=== PATIENT | male | born 2000 | race Caucasian/White ===

== ENCOUNTER 2020-05-12 21:52 | Emergency (ER) | payer BC ==
[~2020-05-12] VITALS: Ht 170.2 cm; Wt 86.2 kg
[~2020-05-12 21:52] MED LIST: CLONAZEPAM 1 MG1 M1 PO; HYDROXYZINE HCL10 M1 PO; KEFLEX250 MG PO; REMERON30 MG PO; STRATTERA PO; VYVANSE60 MG PO; [UNRECOGNIZED DRUG - REMARK]
[2020-05-12 22:36] LABS: URINE BILIRUBIN NEGATIVE (Negative); URINE BLOOD NEGATIVE (Negative); URINE CLARITY CLEAR; URINE COLOR YELLOW; URINE GLUCOSE-RANDOM NEGATIVE (Negative); URINE KETONES NEGATIVE (Negative); URINE LEUKOCYTES-REFLEX NEGATIVE (Negative); URINE NITRITE-REFLEX NEGATIVE (Negative); URINE PROTEIN NEGATIVE (Negative); URINE SPECIFIC GRAVITY >= 1.030 (1.005-1.030); URINE UROBILINOGEN 0.2 E.U./dl (0.2-1.0)
[2020-05-12 22:58] LABS: ABSOLUTE BASOPHILS 0.1 thou/uL (0.0-0.2); ABSOLUTE EOSINOPHILS 0.5 thou/uL (0.0-0.7); ABSOLUTE LYMPHOCYTES 2.7 thou/uL (0.8-5.3); ABSOLUTE MONOCYTES 0.8 thou/uL (0.0-1.2); ABSOLUTE NEUTROPHILS 6.7 thou/uL (1.6-8.1); EOSINOPHILS 4.3 %; HEMATOCRIT 43.6 % (42.0-52.0); HEMOGLOBIN 15.2 gm/dL (14.0-18.0); LYMPHOCYTES 24.7 %; MCH 30.5 pg (26.0-34.0); MCV 87.3 fL (80.0-100.0); MONOCYTES 7.2 %; MPV 8.1 fl. (7.2-11.1); NUCLEATED RBCS 0 /100WBC; PLATELET COUNT* 256 thou/uL (150-400); POLYS 62.8 %; RDW-CV 12.4 % (10.5-14.5); WBC 10.7 thou/uL (4.0-11.0)
[2020-05-12 23:07] LABS: CALCIUM 8.6 mg/dL (8.5-10.1); POTASSIUM 3.5 mmol/L (3.5-5.1)
[2020-05-12 23:12] LABS: ALBUMIN 4.2 g/dL (3.4-5.0); MAGNESIUM 2.2 mg/dL (1.8-2.4); TOTAL BILIRUBIN 0.3 mg/dL (<0.1-1.0); TOTAL PROTEIN 7.7 g/dL (6.4-8.2)
[2020-05-12 23:15] LABS: AMP/METHAMP Negative (Negative); BARBITURATES Negative (Negative); BENZODIAZEPINES Negative (Negative); COCAINE Negative (Negative); METHADONE Negative (Negative); OPIATES Negative (Negative); PCP Negative (Negative); THC Negative (Negative)
[2020-05-13] MEDS ORDERED: ZOFRAN ODT4 MG PO (01:13)
[2020-05-13 01:28] VITALS: BP 124/71
== END 2020-05-13 01:29 | disposition home or self-care (01) ==
LOC: M.ERS 21:52
PROVIDERS: Personal Emergency Response Attendant
DX: K52.9 Noninfective gastroenteritis and colitis, unspecified (principal); R11.2 Nausea with vomiting, unspecified; J45.909 Unspecified asthma, uncomplicated; Z85.828 Personal history of other malignant neoplasm of skin

== ENCOUNTER 2020-05-17 18:16 | Observation (INO) | payer BC ==
[~2020-05-17] VITALS: Ht 172.7 cm; Wt 86.2 kg
[~2020-05-17 18:16] MED LIST changes: +ZOFRAN ODT4 MG PO
[2020-05-17 18:17] VITALS: BP 140/75
[2020-05-17 19:40] LABS: URINE BILIRUBIN NEGATIVE (Negative); URINE BLOOD NEGATIVE (Negative); URINE CLARITY CLEAR; URINE COLOR YELLOW; URINE GLUCOSE-RANDOM NEGATIVE (Negative); URINE KETONES NEGATIVE (Negative); URINE LEUKOCYTES-REFLEX NEGATIVE (Negative); URINE NITRITE-REFLEX NEGATIVE (Negative); URINE PROTEIN NEGATIVE (Negative); URINE SPECIFIC GRAVITY 1.025 (1.005-1.030); URINE UROBILINOGEN 0.2 E.U./dl (0.2-1.0)
[2020-05-17 19:46] LABS: AMP/METHAMP Negative (Negative); BARBITURATES Negative (Negative); BENZODIAZEPINES Negative (Negative); COCAINE Negative (Negative); METHADONE Negative (Negative); OPIATES Negative (Negative); PCP Negative (Negative); THC Negative (Negative)
[2020-05-17 19:53] LABS: ABSOLUTE EOSINOPHILS 0.4 thou/uL (0.0-0.7); ABSOLUTE MONOCYTES 0.6 thou/uL (0.0-1.2); ABSOLUTE NEUTROPHILS 6.8 thou/uL (1.6-8.1); BASOPHILS 0.3 %; EOSINOPHILS 3.6 %; HEMATOCRIT 43.7 % (42.0-52.0); HEMOGLOBIN 15.5 gm/dL (14.0-18.0); LYMPHOCYTES 20.2 %; MCH 30.8 pg (26.0-34.0); MCHC 35.4 g/dL (28.0-37.0); MCV 87.1 fL (80.0-100.0); MONOCYTES 6.5 %; MPV 8.2 fl. (7.2-11.1); NUCLEATED RBCS 0 /100WBC; PLATELET COUNT* 255 thou/uL (150-400); POLYS 69.4 %; RBC 5.02 mil/uL (4.50-6.00); RDW-CV 12.6 % (10.5-14.5); WBC 9.8 thou/uL (4.0-11.0)
[2020-05-17 20:00] LABS: CALCIUM 8.8 mg/dL (8.5-10.1); POTASSIUM 3.5 mmol/L (3.5-5.1)
[2020-05-17 20:05] LABS: ALBUMIN 4.3 g/dL (3.4-5.0); MAGNESIUM 2.2 mg/dL (1.8-2.4); TOTAL BILIRUBIN 0.3 mg/dL (<0.1-1.0); TOTAL PROTEIN 7.8 g/dL (6.4-8.2)
[2020-05-17 23:49] VITALS: BP 128/78
[2020-05-18 02:17] VITALS: BP 144/79
[2020-05-18 07:20] VITALS: BP 128/83
[2020-05-18] MEDS ORDERED: ACETAMINOPHEN325 MG PO (08:21)
[2020-05-18] MEDS ORDERED: IBUPROFEN 600600 M1 PO (08:21)
[2020-05-18 08:38] VITALS: BP 128/83
[2020-05-18 09:01] VITALS: BP 128/83
--- NOTE | 2020-05-20 12:06 | PATH ---
[facility] [address] [place] [address] PATHOLOGY RPT PROCEDURE Name: TEODORO STRONG Room: [address] Reyna Gil#: [id number] Admission: 05/18/20 Date of : 89 Discharge: 05/18/20 Report #: [id number] Path Case #: [id number] [facility] Accession Number: [id number] . 01 Material submitted: . appendix - APPENDIX . 01 Clinical history: . appendicitis . 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 - Negative for malignancy. . (MLK:mml; 05/19/2020) QL 05/20/2020 1107 Local . 02 Electronically signed: . Gin Teresa MD, Pathologist NPI- [id number] . 01 Gross description: . The specimen is received in formalin, labeled "Teodoro Strong", "appendix". Received is a vermiform appendix which measures 7.2 cm in length and up to 1.1 cm in diameter. The serosa surface is wrinkled, shiny and pale mar-valenzuela. Sectioning reveals a partially patent lumen with a dilated distal tip. The tip is filled with a multicystic gelatinous irregularity that measures 1.8 cm in size. No distinct solid masses or nodules are identified. Fire Manager sections are submitted in cassettes A1 to A3, with the cystic area entirely submitted in cassettes A2 and A3.(SNA; 05/18/2020) UMER/ANNA 05/18/2020 1730 Local . 02 Pathologist provided ICD-10: K35.80, K36 . 02 CPT . 622929 Specimen Comment: A courtesy copy of this report has been sent to [phone] Specimen Comment: Report sent to Performed at: [address] [id number] MD Dandy Clifton MD Phone: [phone] Performed at: 02 [place] [address] PATHOLOGY RPT PROCEDURE Name: TEODORO STRONG Room: [address] M.RHumberto#: [id number] Admission: 05/18/20 Date of : 89 Discharge: 05/18/20 Report #: [id number] Path Case #: [id number] [address] CARLOS Paz [id number] MD Yasir Boateng MD Phone: [phone]
--- NOTE | 2020-05-21 09:37 | OP ---
[address] [address] OPERATIVE REPORT Name: DENI STRONG Room: [address] Reyna Gil#: [id number] Admission: 05/18/20 Attend Phys: Sylvain George DO Discharge: 05/18/20 Date of : 89 Report #: [id number] THIS REPORT FOR: //name// cc: SEGUNDO Guo family physician/PCP SEGUNDO Guo family physician/PCP ~ THIS REPORT FOR: //name// CC: Sylvain RAYMOND physician/PCP DATE OF SERVICE: 05/17/2020 PREOPERATIVE DIAGNOSIS: Acute appendicitis. POSTOPERATIVE DIAGNOSIS: Acute appendicitis. PROCEDURE: Laparoscopic appendectomy. SURGEON: Sylvain George DO LICENSED RETAIL SUPERVISOR: Amrik Salas DO, PGY-1, resident. ANESTHESIA: General endotracheal. ESTIMATED BLOOD LOSS: Less than 20 mL. COMPLICATIONS: None. DESCRIPTION OF PROCEDURE: After obtaining proper consents and discussing risks and complications with the patient, he was taken to the operating room, laid in the supine position, administered general endotracheal anesthetic. He was then prepped and draped in the usual sterile fashion. A timeout was performed. We confirmed the appropriate patient and procedure. Preoperative antibiotics had been given. SCDs were in place. We then made a small supraumbilical skin incision with #11 scalpel blade. This was carried down through the skin into the subcutaneous tissue using electrocautery for hemostasis. Once the fascia was encountered, it was incised along the midline, grasped and elevated with Rainer clamps and divided further. The peritoneum was then bluntly opened using a hemostat. A finger was placed inside the peritoneal cavity to assure that there were no helder-incisional adhesions. Next, 2-0 Vicryl sutures were placed in a [id number] fashion to secure the Kamila trocar, which was then inserted and insufflation was begun. Once insufflation was complete, full visual inspection of the anterior abdominal organs was performed. This revealed no significant gross abnormalities. Immediately, there was a large amount of omental fat. We then placed the patient in Trendelenburg position. A 5 mm trocar was placed in the suprapubic position, a 12 mm [place] [address] OPERATIVE REPORT Name: DENI STRONG ALAN [address]: [address]#: [id number] Admission: 05/18/20 Attend Phys: Sylvain George DO Discharge: 05/18/20 Date of : 99 Report #: [id number] left lower quadrant. I was then able to identify the cecum and then identified the appendix, which was noted to be markedly inflamed, especially at the distal aspect, I used blunt dissection as well as the Harmonic scalpel to sequentially clamp and divide the mesoappendix. The appendix was then attached only at its base. Once it was attached only at its base and we could see the confluence of the tenia coli, I used an Endo-JOSEPH 45 mm purple load to divide the base of the appendix. We then placed the appendix into an Endopouch. I checked the appendiceal stump and mesoappendiceal stump for any leak or bleeding, there was none identified. We then placed the patient back into the normal supine position. I removed the left lower quadrant trocar and the site was closed using a PMI closure device with 0 Vicryl suture to close the fascia. The remaining trocars were then removed under direct vision and the insufflation was all released. We then closed the umbilical fascia using the 2 previously placed 0 Vicryl sutures plus 2 additional 0 Vicryl sutures. I then closed the subcutaneous tissue of the umbilical incision with a 3-0 Vicryl suture. Skin incisions were all closed using 4-0 Monocryl subcuticular stitches. Dermabond was placed. The wounds were injected with 0.5% Marcaine without epinephrine. The patient was then awakened in the operating room and transported to recovery room in stable condition. <ELECTRONICALLY SIGNED> By: Sylvain George DO 05/21/20 0937 [id number] George DO /rohit
== END 2020-05-18 09:02 | disposition home or self-care (01) ==
LOC: M.SUR 18:16 → M.ERS 18:16 → M.SUR 23:50 → M.TBA-ER 05-18 01:26 → M.ORTHSURG 05-18 02:13
PROVIDERS: Emergency Medicine; ADMIT Surgery; ATTEND Surgery
DX: Z03.818 Encounter for observation for suspected exposure to other biological agents ruled out (principal); K35.80 Unspecified acute appendicitis

== ENCOUNTER 2020-11-03 09:28 | Emergency (ER) | payer OTHER ==
[~2020-11-03] VITALS: Ht 172.7 cm; Wt 90.7 kg
[~2020-11-03 09:28] MED LIST changes: +ACETAMINOPHEN325 MG PO; +IBUPROFEN 600600 M1 PO
[2020-11-03 10:20] LABS: URINE BILIRUBIN NEGATIVE (Negative); URINE BLOOD NEGATIVE (Negative); URINE CLARITY CLEAR; URINE COLOR YELLOW; URINE GLUCOSE-RANDOM NEGATIVE (Negative); URINE KETONES NEGATIVE (Negative); URINE LEUKOCYTES-REFLEX NEGATIVE (Negative); URINE NITRITE-REFLEX NEGATIVE (Negative); URINE PROTEIN NEGATIVE (Negative); URINE SPECIFIC GRAVITY >= 1.030 (1.005-1.030); URINE UROBILINOGEN 0.2 E.U./dl (0.2-1.0)
[2020-11-03 10:23] LABS: ABSOLUTE BASOPHILS 0.1 thou/uL (0.0-0.2); ABSOLUTE EOSINOPHILS 0.4 thou/uL (0.0-0.7); ABSOLUTE MONOCYTES 0.9 thou/uL (0.0-1.2); ABSOLUTE NEUTROPHILS 7.5 thou/uL (1.6-8.1); BASOPHILS 0.7 %; EOSINOPHILS 3.5 %; HEMATOCRIT 47.2 % (42.0-52.0); HEMOGLOBIN 16.4 gm/dL (14.0-18.0); LYMPHOCYTES 18.7 %; MCH 30.2 pg (26.0-34.0); MCHC 34.9 g/dL (28.0-37.0); MCV 86.5 fL (80.0-100.0); MONOCYTES 7.9 %; MPV 8.1 fl. (7.2-11.1); NUCLEATED RBCS 0 /100WBC; PLATELET COUNT* 300 thou/uL (150-400); POLYS 69.2 %; RBC 5.45 mil/uL (4.50-6.00); RDW-CV 12.6 % (10.5-14.5); WBC 10.8 thou/uL (4.0-11.0)
[2020-11-03 10:27] LABS: CALCIUM 9.3 mg/dL (8.5-10.1); CREATININE 0.9 mg/dL (0.6-1.3)
[2020-11-03 10:31] LABS: ALBUMIN 4.9 g/dL (3.4-5.0); TOTAL BILIRUBIN 0.4 mg/dL (<0.1-1.0); TOTAL PROTEIN 8.7 g/dL (6.4-8.2)
[2020-11-03] MEDS ORDERED: ZOFRAN ODT4 MG DISSOLVE (10:40)
[2020-11-03] MEDS ORDERED: BENTYL 10 MG CA10 MG PO (10:41)
[2020-11-03 10:59] VITALS: BP 115/63
== END 2020-11-03 11:00 | disposition home or self-care (01) ==
LOC: M.ERS 09:28
PROVIDERS: Emergency Medicine Emergency Medical Services
DX: K52.9 Noninfective gastroenteritis and colitis, unspecified (principal); J45.909 Unspecified asthma, uncomplicated